=== PATIENT | female | born 1935 | race Caucasian/White ===

== ENCOUNTER → 2017-08-08 | Outpatient (CLI) | payer OTHER ==
[~2017-08-08] MED LIST: ALLO100T30 PO; AMLO5TAB2 PO; AMOX1TAB12 PO; ASPI-496 PO; CARV-39 PO; CARV6.252 PO; DOXY100T PO; ERGO500017 PO; FLUT1DIS3 INH; FLUT1DIS5 IH; FURO-93 PO; GUAI5SYR PO; HYDR-3240 PO; HYDR25TA6 PO; LEVO500T47 PO; LOSA25TA5 PO; LOSA50TA6 PO; MULT1TAB60 PO; OMEP-110 PO; PRAV20TA2 PO; PRAV40TA2 PO; PRED20TA PO
== END | disposition home or self-care (01) ==
LOC: CFH 14:05
PROVIDERS: ATTEND Internal Medicine Critical Care Medicine
DX: J98.19 Other pulmonary collapse (principal); J47.9 Bronchiectasis, uncomplicated; J44.9 Chronic obstructive pulmonary disease, unspecified; I25.10 Atherosclerotic heart disease of native coronary artery without angina pectoris; I70.0 Atherosclerosis of aorta; K80.20 Calculus of gallbladder without cholecystitis without obstruction; M51.36 Other intervertebral disc degeneration, lumbar region; M41.86 Other forms of scoliosis, lumbar region
CPT/HCPCS: 71250